=== PATIENT | female | born 1950 | race Caucasian/White ===

== ENCOUNTER 2023-03-29 10:57 | Emergency (ER) | payer MEDICARE, BC ==
[~2023-03-29] VITALS: Ht 162.6 cm; Wt 95.5 kg
[2023-03-29 11:44] LABS: BASOPHILS # (AUTO) 0.1 X10'3 (0-0.2); BASOPHILS % (AUTO) 0.9 % (0-1); EOSINOPHILS # (AUTO) 0.1 X10'3 (0-0.9); EOSINOPHILS % (AUTO) 0.6 % (0-6); HEMATOCRIT 35.4 % (35.0-45.0); HEMOGLOBIN 11.8 g/dl (12.0-16.0); LYMPHOCYTES # (AUTO) 1.6 X10'3 (1.1-4.8); LYMPHOCYTES % (AUTO) 17.7 % (21-51); MEAN CORPUSCULAR HEMOGLOBIN 30.3 PG (27.0-31.0); MEAN CORPUSCULAR HGB CONC 33.4 g/dL (33.0-36.5); MEAN CORPUSCULAR VOLUME 90.7 FL (78-98); MEAN PLATELET VOLUME 6.9 FL (7.4-10.4); MONOCYTES # (AUTO) 0.3 X10'3 (0-0.9); MONOCYTES % (AUTO) 3.7 % (2-12); NEUTROPHILS # (AUTO) 6.8 X10'3 (1.8-7.7); NEUTROPHILS % (AUTO) 77.1 % (42-75); PLATELET COUNT 392 X10'3 (140-440); RED BLOOD COUNT 3.91 X10'6 (4.20-5.60); RED CELL DISTRIBUTION WIDTH 15.9 % (11.5-14.5); WHITE BLOOD COUNT 8.8 X10'3 (4.5-11.0)
[2023-03-29 11:56] LABS: ALANINE AMINOTRANSFERASE 17 U/L (12-78); ALBUMIN 3.4 G/DL (3.4-5.0); ALBUMIN/GLOBULIN RATIO 0.9 (1.1-1.5); ALKALINE PHOSPHATASE 97 IU/L (46-116); ANION GAP 12 (8-16); ASPARTATE AMINO TRANSFERASE 8 U/L (10-37); BILIRUBIN,TOTAL 0.2 MG/DL (0.1-1.0); BLOOD UREA NITROGEN 41 MG/DL (7-18); BUN/CREATININE RATIO 34.2 (10.0-20.0); CALCIUM 9.3 MG/DL (8.5-10.1); CHLORIDE 99 MMOL/L (99-107); GLUCOSE 114 MG/DL (70-104); SODIUM 134 MMOL/L (135-145); TOTAL CARBON DIOXIDE 23.5 MMOL/L (24-32); TOTAL PROTEIN 7.1 G/DL (6.4-8.2); eGFR 44 ML/MIN
[2023-03-29] MEDS ORDERED: sodium polystyrene sulfonate 15gm/60ml oral suspension PO ONE (13:10)
[2023-03-29 13:34] VITALS: BP 164/74; PULSE 74; RESP 16; TEMP 97.8; O2SAT 95
== END 2023-03-29 13:40 | disposition home or self-care (01) ==
LOC: ER 10:58
DX: E87.5 Hyperkalemia (principal); J44.9 Chronic obstructive pulmonary disease, unspecified; F17.200 Nicotine dependence, unspecified, uncomplicated
CPT/HCPCS: 36415; 71045; 80053; 83880; 84484; 85025; 93005; 99285

== ENCOUNTER 2023-12-06 14:08 | Day surgery (SDC) | payer MEDICARE, BC ==
[2023-12-03 09:12] LABS: ALBUMIN 3.3 G/DL (3.4-5.0); ANION GAP 7 (8-16); BLOOD UREA NITROGEN 10 MG/DL (7-18); BUN/CREATININE RATIO 9.9 (10.0-20.0); CALCIUM 8.6 MG/DL (8.5-10.1); CHLORIDE 102 MMOL/L (99-107); CREATININE 1.01 MG/DL (0.40-0.90); GLUCOSE 92 MG/DL (70-104); POTASSIUM 4.5 MMOL/L (3.5-5.1); SODIUM 137 MMOL/L (135-145); TOTAL CARBON DIOXIDE 28.1 MMOL/L (24-32); eGFR 54 ML/MIN
[2023-12-03 09:19] LABS: APTT 31 SECONDS (22-32); INR 1.1 INR
[2023-12-03 09:22] LABS: MEAN PLATELET VOLUME 7.4 FL (7.4-10.4)
[2023-12-03 09:24] LABS: BASOPHILS % (AUTO) 0.5 % (0-1); EOSINOPHILS # (AUTO) 0.1 X10'3 (0-0.9); EOSINOPHILS % (AUTO) 1.6 % (0-6); HEMATOCRIT 43.3 % (35.0-45.0); LYMPHOCYTES # (AUTO) 2.2 X10'3 (1.1-4.8); LYMPHOCYTES % (AUTO) 24.1 % (21-51); MEAN CORPUSCULAR HEMOGLOBIN 29.5 PG (27.0-31.0); MEAN CORPUSCULAR HGB CONC 34.7 g/dL (33.0-36.5); MEAN CORPUSCULAR VOLUME 84.9 FL (78-98); MONOCYTES # (AUTO) 0.5 X10'3 (0-0.9); MONOCYTES % (AUTO) 5.1 % (2-12); NEUTROPHILS # (AUTO) 6.3 X10'3 (1.8-7.7); NEUTROPHILS % (AUTO) 68.7 % (42-75); PLATELET COUNT 242 X10'3 (140-440); RED CELL DISTRIBUTION WIDTH 16.9 % (11.5-14.5); WHITE BLOOD COUNT 9.2 X10'3 (4.5-11.0)
[~2023-12-06] VITALS: Ht 165.1 cm; Wt 80.1 kg
[2023-12-06 14:24] VITALS: BP 161/94; PULSE 73; RESP 16; TEMP 98.2; O2SAT 95
[2023-12-06] MEDS ORDERED: GABA600T13 PO (14:55)
[2023-12-06] MEDS ORDERED: ATOR-2 PO (14:55)
[2023-12-06] MEDS ORDERED: BIOT1TAB PO (14:55)
[2023-12-06] MEDS ORDERED: TIRZ7.5P INJ (14:55)
[2023-12-06] MEDS ORDERED: DICL50TA8 PO (14:55)
[2023-12-06] MEDS ORDERED: CARV6.2553 PO (14:55)
[2023-12-06] MEDS ORDERED: ASPI81TA52 PO (14:55)
[2023-12-06] MEDS ORDERED: CLOP75TA34 PO (14:55)
[2023-12-06] MEDS ORDERED: MULT-1249 PO (14:55)
[2023-12-06] MEDS ORDERED: FURO20TA4 PO (14:55)
[2023-12-06] MEDS ORDERED: UBID100C16 PO (14:55)
[2023-12-06] MEDS ORDERED: EZET10TA48 PO (14:55)
[2023-12-06] MEDS ORDERED: PARO20TA6 PO (14:55)
[2023-12-06] MEDS ORDERED: ZOLP10TA PO (14:55)
[2023-12-06] MEDS ORDERED: CHOL100024 PO (14:55)
[2023-12-06] MEDS ORDERED: CYCL-1 PO (14:55)
[2023-12-06] MEDS ORDERED: ISOS30TA84 PO (14:55)
[2023-12-06 15:00] VITALS: RESP 16; O2SAT 95
[2023-12-06] MEDS: LORazepam 0.5 MG tablet PO PRN (15:47)
[2023-12-06] MEDS: normal saline 1,000 ML IV SCH (15:48)
[2023-12-06] MEDS: diphenhydrAMINE 25mg capsule PO PRN (15:50)
[2023-12-06] MEDS ORDERED: atropine 0.1mg/ml 10ml syringe ONE (16:05)
[2023-12-06] MEDS ORDERED: DOPamine 400mg/D5W 250ml 0 ML IV ONE (16:05)
[2023-12-06] MEDS ORDERED: phenylephrine 10mg/ml inj. -priapism dosing ONE (16:05)
[2023-12-06] MEDS ORDERED: heparin 1,000unit/ml 10ml vial 0 ML ONE (16:05)
[2023-12-06] MEDS ORDERED: heparin 1,000 UNITS/NS 500ml 500 ML ONE (16:05)
[2023-12-06] MEDS ORDERED: LIDOcaine 1% 30ml preserv. free vial ONE (16:05)
[2023-12-06] MEDS ORDERED: iohexol 350MG/ML 100ml bottle IV ONE (16:05)
== END 2023-12-06 17:30 | disposition home or self-care (01) ==
LOC: SSTAY O 14:08
PROVIDERS: ATTEND Student in an Organized Health Care Education/Training Program
DX: I65.29 Occlusion and stenosis of unspecified carotid artery (principal); Z53.8 Procedure and treatment not carried out for other reasons; I25.10 Atherosclerotic heart disease of native coronary artery without angina pectoris; I11.0 Hypertensive heart disease with heart failure; I50.9 Heart failure, unspecified; E11.9 Type 2 diabetes mellitus without complications; E78.00 Pure hypercholesterolemia, unspecified; I25.2 Old myocardial infarction; I73.9 Peripheral vascular disease, unspecified; Z79.82 Long term (current) use of aspirin; Z79.899 Other long term (current) drug therapy; Z88.1 Allergy status to other antibiotic agents; Z88.5 Allergy status to narcotic agent; Z88.8 Allergy status to other drugs, medicaments and biological substances
CPT/HCPCS: 36415; 80048; 82948; 85025; 85610; 85730; 93005; J1644; J2371; J3490; J7030; A6258; J0461; J1265; J2370; Q9967